=== PATIENT | female | born 1990 | race Caucasian/White ===

== ENCOUNTER 2017-05-18 19:10 | Emergency (ER) | payer MEDICAID ==
[~2017-05-18] VITALS: Ht 167.6 cm; Wt 59.0 kg
[2017-05-18] MEDS ORDERED: Norco 5mg/325mg tab ORAL ONE (19:45)
--- NOTE | 2017-05-18 19:49 | Emergency Room Report ---
History of Present Illness General Chief Complaint: Lower Extremity Injury Source: Patient (Velma Subramanian) Present Illness HPI 26-year-old female presents to the emergency department complaining that it out of 10 pain to the medial right ankle since yesterday. Patient states that she believes she twisted her ankle while walking down some stairs. Patient cannot recall the exact mechanism. She denies hitting her head she denies loss of consciousness patient reports bruising, swelling and 8/10 in severity localized pain. Patient states pain is exacerbated upon weightbearing and palpation. Denies numbness tingling or loss of sensation or gross motor movements of the extremities, incontinence of bowel or bladder. Denies CP, Palpitations, LOC, AMS , dizziness, Changes in Vision, Sensation, paresthesias, or a sudden severe headache. (Velma Subramanian) Allergies: Coded Allergies: No Known Allergies (Unverified , 05/18/17) Patient History Past Medical History: see triage record Past Surgical History: none Pertinent Family History: none Last Menstrual Period: 05/02/17 Now: No Immunizations: UTD Reviewed Nursing Documentation: PMH: Agreed, PSxH: Agreed (Velma Subramanian) Nursing Documentation-PMH Past Medical History: No History, Except For Hx Cardiac Problems: Yes - heart murmur (Velma Subramanian) Review of Systems All Other Systems: negative except mentioned in HPI (Velma Subramanian) Physical Exam Vital Signs Date Time Temp Pulse Resp B/P (MAP) Pulse Ox O2 Delivery O2 Flow Rate FiO2 05/18/17 19:26 98.2 102 18 124/80 99 Room Air Sp02 EP Interpretation: reviewed, normal General Appearance: no apparent distress, alert, GCS 15, non-toxic Head: normocephalic, atraumatic Eyes: bilateral eye normal inspection, bilateral eye PERRL ENT: hearing grossly normal, normal voice Neck: full range of motion Respiratory: lungs clear, normal breath sounds, speaking full sentences Cardiovascular #1: regular rate, rhythm, no edema Cardiovascular #2: 2+ dorsalis pedis (R) Musculoskeletal: back normal, normal range of motion - with pain, other - pt. walks favoring the right lower extremity. Pt. is NVI to the right LE., tender - TTP to the medial right ankle, there is swelling, ttp to the medial right foot. no obivious deformity noted. Neurologic: alert, oriented x3, responsive, motor strength/tone normal, sensory intact, speech normal Psychiatric: judgement/insight normal, memory normal, mood/affect normal Skin: normal color, no rash, warm/dry, well hydrated, other - bruising to the medial right ankle (Velma Subramanian.Carmelina) Medical Decision Making PA Attestation Dr. Hunter is my supervising Physician whom patient management has been discussed with. (Velma Subramanian) Diagnostic Impression: Primary Impression: Ankle contusion Qualified Codes: S90.01XA - Contusion of right ankle, initial encounter Additional Impression: Ankle sprain Qualified Codes: S93.401A - Sprain of unspecified ligament of right ankle, initial encounter ER Course 26-year-old female presents to the emergency department complaining that it out of 10 pain to the medial right ankle since yesterday. Patient states that she believes she twisted her ankle while walking down some stairs. Patient cannot recall the exact mechanism. She denies hitting her head she denies loss of consciousness patient reports bruising, swelling and 8/10 in severity localized pain. Patient states pain is exacerbated upon weightbearing and palpation. Denies numbness tingling or loss of sensation or gross motor movements of the extremities, incontinence of bowel or bladder. Denies CP, Palpitations, LOC, AMS , dizziness, Changes in Vision, Sensation, paresthesias, or a sudden severe headache. Ddx considered but are not limited to Fracture, dislocation, contusion, Sprain/ Strain/Spasm, Epidural abscess, Neoplastic mets. Vital signs: are WNL, pt. is afebrile H&PE are most consistent with musculoskeletal injury will perform imaging to r/ o fractures/dislocations. ORDERS: - X-ray Right Ankle 3 views - negative for fx, Dislocation, or significant soft tissue injury, per preliminary read in ED by Dr. Hunter - interpretation is scribed by PA. - X-ray Right Foot 3 views - negative for fx, Dislocation, or significant soft tissue injury, per preliminary read in ED by Dr. Hunter - interpretation is scribed by PA. ED INTERVENTIONS: - [place] PO - Ice Pack applied to the affected area. - Air Splint applied to the right ankle by explosive ordnance technician. Pt. remains neurovascularly intact. -Pt is provided with a pair of crutches DISCHARGE: At this time pt. is stable for d/c to home. Will provide printed patient care instructions, and any necessary prescriptions. Care plan and follow up instructions have been discussed with the patient prior to discharge. (Velma Subramanian) Other X-Ray Diagnostic Results Other X-Ray Diagnostic Results : Interpreting ER Provider: Scribe documentation reviewed by me and is accurate, Efrem Hunter MD. (Efrem Hunter M.D.) Last Vital Signs Date Time Temp Pulse Resp B/P (MAP) Pulse Ox O2 Delivery O2 Flow Rate FiO2 05/18/17 19:26 98.2 102 18 124/80 99 Room Air (Velma Subramanian) Disposition: HOME, SELF-CARE Condition: Stable Scripts Ibuprofen* (MOTRIN*) 600 Mg Tablet 600 MG ORAL THREE TIMES A DAY, #30 TAB 0 Refills Prov: Velma Subramanian 05/18/17 Patient Instructions: Foot Sprain, Ankle Sprain Additional Instructions: Take medications as directed. Follow up with a Primary Care Provider in 3-5 days, even if your symptoms have resolved. --Please review list of primary care clinics, if you do not already have a primary care provider Return sooner to ED if new symptoms occur, or current symptoms become worse. Do not drink alcohol, drive, or operate heavy machinery while taking [ ] as this may cause drowsiness. - Please note that this Emergency Department Report was dictated using [email or web address]habil[employer] technology software, occasionally this can lead to erroneous entry secondary to interpretation by the dictation equipment. Velma Subramanian May 18, 2017 19:49 Efrem Hunter M.D. May 20, 2017 04:17
[2017-05-18] MEDS ORDERED: IBUPROFEN600 MG ORAL (20:38)
[2017-05-18 20:42] VITALS: BP 124/80
--- NOTE | 2017-05-19 11:37 | Diagnostic Imaging Report ---
Indication: Pain Comparison: None Findings: 3 views of the right foot were obtained. No acute fractures, malalignment, erosions or periostitis are identified. Bone mineralization is within normal limits. Soft tissues are unremarkable. Impression: Negative examination of the right foot.
--- NOTE | 2017-05-19 11:38 | Diagnostic Imaging Report ---
Indication: Pain right ankle Comparison: None Findings: 3 views of the right ankle obtained. No acute fracture, malalignment, periostitis, or osteochondral defects are identified. Soft tissues are unremarkable. Impression: Negative examination
== END 2017-05-18 20:42 | disposition home or self-care (01) ==
LOC: EMR 19:25
DX: S90.01XA Contusion of right ankle, initial encounter (principal); S93.401A Sprain of unspecified ligament of right ankle, initial encounter; X58.XXXA Exposure to other specified factors, initial encounter; Y93.9 Activity, unspecified; Y92.9 Unspecified place or not applicable
CPT/HCPCS: 99284